=== PATIENT | male | born 2000 | race Caucasian/White ===

== ENCOUNTER 2018-12-02 02:26 | Emergency (ER) | payer OTHER ==
[~2018-12-02] VITALS: Ht 22.9 cm; Wt 72.7 kg
[2018-12-02 02:26] VITALS: TEMP 97.9
[2018-12-02 02:43] LABS: BASO % 0.7 % (0.0-2.0); EOS % 0.2 % (0-4.0); GRAN # 3.2 (1.4-6.5); GRAN % 55.5 % (42.2-75.2); HEMATOCRIT 45.3 % (36.0-47.0); HEMOGLOBIN 16.1 g/dl (12.5-16.1); LYMPH # 2.2 (1.2-3.4); LYMPH % 38.4 % (20.0-51.0); MEAN CELL VOLUME 86 fl (80.0-95.0); MEAN CORPUSCULAR HEMOGLOBIN 30 pg (26.0-32.0); MEAN CORPUSCULAR HGB CONC 36 g/dl (33.0-37.0); MEAN PLATELET VOLUME 9.5 fl (7.4-10.4); MONO # 0.3 (0.1-0.6); MONO % 4.9 % (1.7-9.3); PLATELET COUNT 249 K/mm3 (130-400); REDCELL DISTRIBUTION WIDTH-CV 11.5 % (11.5-14.5)
[2018-12-02 02:58] LABS: ALBUMIN 4.7 gm/dL (3.5-5.0); BILIRUBIN,TOTAL 0.6 mg/dL (0.0-1.0); CALCIUM 8.9 mg/dL (8.4-10.2); CREATININE, serum 0.83 mg/dL (0.66-1.25); POTASSIUM 3.5 mmol/L (3.4-5.0); TOTAL PROTEIN 7.8 gm/dL (6.4-8.2)
[2018-12-02 07:39] VITALS: BP 106/69; PULSE 96
== END 2018-12-02 07:41 | disposition home or self-care (01) ==
LOC: COL.ER 02:26
PROVIDERS: Emergency Medicine
DX: F10.129 Alcohol abuse with intoxication, unspecified (principal); Y90.8 Blood alcohol level of 240 mg/100 ml or more
CPT/HCPCS: J2405; J7030